=== PATIENT | female | born 1975 | race Caucasian/White ===

== ENCOUNTER 2025-07-03 13:53 | Outpatient (CLI) | payer OTHER | END 2025-07-03 13:54 | disposition home or self-care (01) | LOC: BICMAMMO 13:53 | PROVIDERS: ATTEND Physician Assistant | DX: Z12.31 Encounter for screening mammogram for malignant neoplasm of breast (principal); Z80.3 Family history of malignant neoplasm of breast | CPT/HCPCS: 77063; 77067 ==